=== PATIENT | male | born 1980 | race Two or more races ===

== ENCOUNTER 2024-03-14 01:25 | Emergency (ER) | payer SELFPAY ==
[2024-03-14 01:25] VITALS: BMI 35.2
--- NOTE | 2024-03-14 01:45 | PD.EDADULT ---
ED General RME/HPI General Chief complaint: General Adult/Misc Complain Stated complaint: HIGH BLOOD PRESSURE;N/V,CASANOVA Time Seen by Provider: 03/14/24 01:45 Arrival date/time: 03/14/24 01:25 RME / HPI RME / HPI narrative: This section includes all my notes and documentations, including HPI, PE, and ED course. Maurilio Rodarte MD HPI: 43yo male with a history of HTN, HLD, alcohol abuse accompanied by his presents to the ED for a chief complaint of elevated blood pressure. Patient states his blood pressure has been high since 1700 with the highest reading being 222/187. Patient reports associated headache, dizziness, nausea, and vomiting. He denies any chest pain, shortness of breath. Patient endorses drinking tonight and drinking daily for several months.. Has abdominal pain, difficult to localize. No other complaints reported. ROS: All negative except as documented in HPI. Physical Exam: General: Alert and oriented. No acute distress when remaining still. Eyes: Conjunctivae and lids clear. ENT: No nasal congestion. Neck: Supple. Heart: RRR. Lungs: No respiratory distress. Good air movement. No rhonchi, wheezing, rales. Abdomen: Soft and equivocal tenderness, difficult to localize. Legs: No clubbing, cyanosis, edema. Skin: Warm and dry. Neuro: Alert and oriented X 3. Cranial nerves II through XII grossly normal. No peripheral motor deficits. I reviewed all diagnostic test results. My interpretation of the EKG is sinus rhythm with no acute ST?T changes. My interpretation of the chest x-ray is no acute findings, official radiology report is pending. My review of the head CT report is no acute findings. My review of the abdominal CT report is diverticulitis and cirrhosis. Blood tests unremarkable. At this point, diagnoses include diverticulitis and hypertensive urgency. Treatment here included clonidine and metoprolol and Zofran and Flagyl and Levaquin. Significant improvement noted both objectively and subjectively. Recommended more outpatient care. Based on my best medical judgment, made decision no further evaluation or treatment indicated at this time. Patient understands and agrees to the discharge instructions customized and printed, see below. Discharge instructions from Dr. Rodarte: 1. After evaluation, you have diverticulitis, infection of your colon. 2. Take Cipro and Flagyl for the infection. 3. Zofran for nausea/vomiting. 4. Tylenol codeine for severe pain. 5. Clear liquid diet for 24 hours then advance diet slowly as tolerated. 6. To prevent dehydration, increase oral fluid and maintain clear urine. If dark or yellow, increase oral fluid. 7. To lower your BP, take metoprolol ER 100 mg in the morning and at night. You will live longer with lower BP and slower heart rate. 8. See a private doctor on 03/15/2024 for recheck. Ask to review all test results and official radiology reports, to make sure you receive all necessary follow-ups and monitoring, including cirrhosis (severe liver disease from alcohol) seen on your CT scan. Ask to help you stay healthy, helping you to quit alcohol, with good management of your BP, helping you to prevent future heart attacks and strokes, and with regular physical exam and health maintenance. Ask to help you get more care not available here in the ER. Such as EGD or scoping of your stomach, colonoscopy or scoping the colon, and a referral to see a assembler [employer]. 9. Read attached handouts. Seek immediate medical care with worsening, fever, or with any concerns. Maurilio Rodarte MD Related Data Previous Rx's ?Medication ?Instructions ?Recorded chlordiazepoxide HCl 25 mg capsule 25 mg PO Q6H PRN alcohol 08/16/22 withdrawal #20 caps chlorthalidone 25 mg tablet 25 mg PO QDAY #30 tabs 08/16/22 dapagliflozin propaned 5 1 tab PO QDAY #30 ea 08/16/22 mg-metformin ER 1,000 mg tablet, ext rel 24hr (Xigduo XR) ibuprofen 600 mg tablet 600 mg PO Q6H #30 tabs 04/22/23 acetaminophen 300 mg-codeine 30 mg 2 tab PO TID PRN pain #20 tabs 03/14/24 tablet ciprofloxacin HCl 500 mg tablet 500 mg PO BID #20 tabs 03/14/24 (Cipro) metoprolol succinate 100 mg 100 mg PO BID #60 ea 03/14/24 capsule sprinkle, ext. release 24 hr metronidazole 500 mg tablet 500 mg PO BID 10 days #20 tabs 03/14/24 ondansetron 4 mg disintegrating 4 mg PO TID PRN nausea and 03/14/24 tablet vomiting 5 days #10 tabs Allergies Allergy/AdvReac Type Severity Reaction Status Date / Time No Known Allergies Allergy Verified 03/14/24 01:28 Review of Systems Review of Systems Systems Reviewed: All systems reviewed, normal except as documented Past Medical History Past Medical History NEUROLOGIC: Negative Neurological Disorders CARDIAC: Positive Cardiac Disorders, Hypercholesterolemia and Hypertension; Negative Congestive Heart Failure RESPIRATORY: Negative Chronic Obstructive Pulmonary Disease (COPD) GASTROINTESTINAL: Negative Gastrointestinal Disorders GENITOURINARY: Negative Genitourinary Disorders or Renal Disease MUSCULOSKELETAL: Negative Musculoskeletal Disorders ENDOCRINE: Negative Endocrine Disorders, Diabetes Mellitus Type 1 or Diabetes Mellitus Type 2 HEMATOLOGIC: Negative Blood Disorders Social History SMOKING STATUS: Light (< 1 pack/day) ED Exam Narrative Physical exam: As noted in HPI. Course Course Course Narrative: CXR is ordered for determining the etiology of elevated blood pressure. Quality Measures none Orders Category Date Time Status EKG (ED ONLY) *Do not use* NOW Care 03/14/24 01:[address] abdomen pelvis wo con Stat Exams 03/14/24 01:[address] head/brain wo con Stat Exams 03/14/24 01:53 Taken EKG (ED Only) Stat Exams 03/14/24 01:53 Draft XR chest 1V portable Stat Exams 03/14/24 01:53 Taken Alcohol, Blood Medical Stat Lab 03/14/24 02:08 Completed Amylase Stat Lab 03/14/24 02:08 Completed CBC Stat Lab 03/14/24 02:08 Completed CMP [Comprehensive Metabolic Panel] Stat Lab 03/14/24 02:08 Completed Lipase Stat Lab 03/14/24 02:08 Completed Magnesium Stat Lab 03/14/24 02:08 Completed Troponin I Stat Lab 03/14/24 02:08 Completed Levofloxacin [Levaquin] Med 03/14/24 03:40 Discontinued 500 mg PO X1 ONE Metoprolol Tartrate [Lopressor] Med 03/14/24 01:52 Discontinued 100 mg PO X1 ONE Ondansetron Odt [Zofran Odt] Med 03/14/24 01:52 Discontinued 4 mg PO X1 ONE cloNIDine HCL [Catapres] Med 03/14/24 01:52 Discontinued 0.3 mg PO X1 ONE metroNIDAZOLE [Flagyl] Med 03/14/24 03:40 Discontinued 500 mg PO X1 ONE Vital Signs Vital signs: Vital Signs Temperature 98.2 F 03/14/24 01:51 Pulse Rate 99 03/14/24 01:51 Respiratory Rate 18 03/14/24 01:51 Blood Pressure 221/120 H 03/14/24 01:51 Pulse Oximetry (%) 98 03/14/24 01:51 Oxygen Delivery Method Room Air 03/14/24 01:51 [facility] Patient data External records reviewed:: [facility] previous records (Per chart review, patient was seen here on 04/22/23 for cirrhosis.) Clinical information provided by:: patient Social determinants that could affect healthcare access:: alcohol use Patient has the following chronic illnesses:: HTN, HLD, cirrhosis How is presenting disease/condition affected by chronic disease/condition?: exacerbated by Evaluation data The following diagnostics were reviewed and interpreted by me:: lab results, radiology exam(s) and EKG tracing(s) (My interpretation of the EKG is: Sinus rhythm (93 bpm) with nonspecific ST-T changes. Maurilio Rodarte MD) Lab and/or radiology exams considered but not ordered:: none Interpretation Summary: Hypertensive urgency and diverticulitis Medications Medications considered but not ordered:: none Medication administrations:: Medication Administration History Discontinued Medications Clonidine (Clonidine Hcl 0.1 Mg Tablet) 0.3 mg PO X1 ONE Stop: 03/14/24 01:53 Last Admin: 03/14/24 02:53 Dose: 0.3 mg Documented By: PHILIP Levofloxacin (Levofloxacin 250 Mg Tablet) 500 mg PO X1 ONE Stop: 03/14/24 03:41 Last Admin: 03/14/24 03:46 Dose: 500 mg Documented By: JONA Metoprolol Tartrate (Metoprolol Tartrate 25 Mg Tablet) 100 mg PO X1 ONE Stop: 03/14/24 01:53 Last Admin: 03/14/24 02:54 Dose: 100 mg Documented By: PHILIP Metronidazole (Metronidazole 250 Mg Tablet) 500 mg PO X1 ONE Stop: 03/14/24 03:41 Last Admin: 03/14/24 03:46 Dose: 500 mg Documented By: JONA Ondansetron HCl (Ondansetron Odt 4 Mg Tabrap) 4 mg PO X1 ONE; Protocol Stop: 03/14/24 01:53 Last Admin: 03/14/24 02:54 Dose: 4 mg Documented By: PHILIP See chart Consultations Consultation(s) initiated? (list below): No Diagnosis Differential Diagnosis ED Complaint MDM: hypertensive urgency vs emergency, CVA, brain tumor, GA, diverticulitis, ci Most likely diagnosis given after review of the tests above:: diverticulitis and hypertensive urgency Admission Indicated Admission indicated?: not indicated Explain why admission is indicated or not indicated:: Admission criteria not met. Admission Request Was there a request for admission?: No Disposition Plan Disposition Plan: Discharge Discharge Attestation Discharge Attestation: The patient and all family members were given an opportunity to ask questions and understood the discharge instructions. Discharge instructions specifically effects, indications for sooner follow up or return to the emergency department, and the expected course of current diagnosis. Patient condition: Stable Medical Decision Making Differential Diagnosis Differential Diagnosis: hypertensive urgency vs emergency, CVA, brain tumor, GA, diverticulitis, ci Lab Data 03/14/24 02:08 03/14/24 02:08 Labs: Lab Results 03/14/24 Range/Units 02:08 WBC 10.8 H (3.8-10.6) Thou/mm3 RBC 4.56 (4.50-5.90) Miln/mm3 Hgb 14.4 (13.5-16.0) g/dL Hct 41.0 (41.0-53.0) % MCV 90 (80-100) fL MCH 31.6 (25.0-35.0) pg MCHC 35.1 (31.0-37.0) g/dl RDW Std Deviation 40.3 (35.1-43.9) fL Plt Count 296 (140-440) Thou/mm3 Neut % (Auto) 81 H (37-80) % Lymph % (Auto) 15 (10-50) % [place] % (Auto) 3 (0-12) % Eos % (Auto) 0 (0-10) % Baso % (Auto) 1 (0-2.5) % Neut # (Auto) 8.7 H (1.8-7.7) Thou/mm3 Lymph # (Auto) 1.6 (1.0-4.8) Thou/mm3 [place] # (Auto) 0.4 (0.0-0.8) Thou/mm3 Eos # (Auto) 0.0 (0.0-0.5) Thou/mm3 Baso # (Auto) 0.1 (0.0-0.2) Thou/mm3 Immature Gran # (Auto) 0.03 H (0.00-0.00) Thou/mm3 Absolute Nucleated RBC 0.00 (0.00-0.00) Thou/mm3 Immature Gran % 0 (0-0) % Nucleated RBC % 0 (0) /100 WBC Sodium 129 L (136-145) mMol/L Potassium 3.8 (3.4-5.1) mMol/L Chloride 93 L (98-107) mMol/L Carbon Dioxide 24.9 (20.0-31.0) mMol/L Anion Gap 11 (7-16) BUN 8 L (9-23) mg/dL Creatinine 0.8 (0.6-1.3) mg/dL Estim Creat Clear Calc 148.6 (>60) mL/min eGFR > 60 (60 - ) See Note BUN/Creatinine Ratio 10 L (12-20) Ratio Glucose 168 H (74-106) mg/dL Calculated Osmolality 261 L (275-295) Calcium 10.2 (8.3-10.6) mg/dL Corrected Calcium 10.2 H (8.5-10.1) mg/dL Magnesium 1.7 (1.6-2.6) mg/dL Total Bilirubin 0.8 (0.3-1.2) mg/dL AST 100 H (0-34) U/L ALT 96 H (10-49) U/L Alkaline Phosphatase 174 H (46-116) U/L Troponin I < 0.002 (0.0-0.045) ng/mL Total Protein 8.7 H (5.7-8.2) gm/dL Albumin 5.0 (3.5-5.0) gm/dL Globulin 3.7 H (2.3-3.5) gm/dL Albumin/Globulin Ratio 1.4 (1.2-2.2) Amylase 127 H (30-118) U/L Lipase 45 (12-53) U/L Ethyl Alcohol < 3.0 (0-10.0) mg/dL Discharge Plan Plan Patient Disposition: HOME (Self Care) Prescriptions/Referrals Prescriptions/Med Rec: New metoprolol succinate 100 mg capsule,sprinkle,ER 24hr 100 mg PO BID Qty: 60 1RF metronidazole 500 mg tablet 500 mg PO BID 10 Days Qty: 20 0RF acetaminophen-codeine 300-30 mg tablet 2 tab PO TID MDD 6 PRN (Reason: pain) Qty: 20 0RF ciprofloxacin HCl [Cipro] 500 mg tablet 500 mg PO BID Qty: 20 0RF ondansetron 4 mg tablet,disintegrating 4 mg PO TID PRN (Reason: nausea and vomiting) 5 Days Qty: 10 0RF No Action chlordiazepoxide HCl 25 mg capsule 25 mg PO Q6H PRN (Reason: alcohol withdrawal) Qty: 20 0RF chlorthalidone 25 mg tablet 25 mg PO QDAY Qty: 30 0RF Xigduo XR 5-1,000 mg tablet, IR - ER, biphasic 24hr 1 tab PO QDAY Qty: 30 0RF ibuprofen 600 mg tablet 600 mg PO Q6H Qty: 30 0RF Referrals: Doug ([facility]),KAYLEE Sorensen [Primary Care Provider] - In 1 week Problem List Clinical Impression: Diverticulitis, Hypertension Patient/Caregiver Discharge Instructions Discharge Activity: activity as tolerated Education Materials: ED Cirrhosis, ED Diverticulitis, ED Hypertension, Established, ED Alcohol Abuse Additional Instructions: Discharge instructions from Dr. Rodarte: 1. After evaluation, you have diverticulitis, infection of your colon. 2. Take Cipro and Flagyl for the infection. 3. Zofran for nausea/vomiting. 4. Tylenol codeine for severe pain. 5. Clear liquid diet for 24 hours then advance diet slowly as tolerated. 6. To prevent dehydration, increase oral fluid and maintain clear urine.? If dark or yellow, increase oral fluid. 7. To lower your BP, take metoprolol ER 100 mg in the morning and at night. You will live longer with lower BP and slower heart rate. 8. See a private doctor on 03/15/2024 for recheck. Ask to review all test results and official radiology reports, to make sure you receive all necessary follow-ups and monitoring, including cirrhosis (severe liver disease from alcohol) seen on your CT scan. Ask to help you stay healthy, helping you to quit alcohol, with good management of your BP, helping you to prevent future heart attacks and strokes, and with regular physical exam and health maintenance. Ask to help you get more care not available here in the ER.? Such as EGD or scoping of your stomach, colonoscopy or scoping the colon, and a referral to see a assembler [employer]. 9. Read attached handouts.? Seek immediate medical care with worsening, fever, or with any concerns. Print Language: Uzbek Stand Alone Forms: [employer] Info., Patient Portal Info Letter
[2024-03-14 01:51] VITALS: BP 221/120; PULSE 99; RESP 18; TEMP 36.8; O2SAT 98
--- NOTE | 2024-03-14 01:53 | XR_ITS ---
Examination: PA chest single view Technique: Upright PA chest single view Exam date and time: March 14, 2024 0155 hrs. Indications: Shortness of breath high blood pressure today Findings: Normal heart size Lungs are clear. The osseous structures are intact Impression: No active disease
--- NOTE | 2024-03-14 01:53 | EKG_ITS ---
[facility] Test Date: 2024-03-14 Pat Name: SEJAL ZAMARRIPA Department: Room: - Gender: Male [place]: : 1980 Requested By: Maurilio Aguilar Order Number: [id number] Reading MD: Maurilio Aguilar Measurements Intervals [place] Rate: 92 P: 37 TX: 195 QRS: 30 QRSD: 101 T: 39 QT: 362 QTc: 449 Interpretive Statements SINUS RHYTHM Compared to ECG 08/16/2022 14:19:56 Intraventricular conduction delay no longer present /store/S0/[id number].pdf
--- NOTE | 2024-03-14 01:53 | XR_ITS ---
Examination: CT abdomen and pelvis without contrast. Coronal 3-D reconstructions. Sagittal 2-D reconstructions. Date and time of exam:March 14, 2024 0233 hrs. Comparison April 22, 2023 Indications: Abdominal pain nausea vomiting today CTDI: vol (mGy): 21.01 DLP: (mGycm): 1444 Technique: Axial images of the abdomen have been obtained, 3 mm slice thickness Intravenous contrast material has not been administered. Low dose protocols were performed. One or more of the following dose reduction techniques were used; automated exposure control, adjustment of the mA and/or KV according to patient size, use of iterative reconstruction technique. Findings: Liver irregular in contour and enlarged 28 cm Mild splenomegaly No focal liver lesions No gallstones No pancreatic or adrenal mass No renal or ureteral calculi, no hydronephrosis Aorta normal size Normal appendix No bowel obstruction Colonic diverticulosis Minimal sigmoid diverticulitis No peridiverticular abscess Urinary bladder intact Impression: Minimal sigmoid diverticulitis, no pelvic abscess
--- NOTE | 2024-03-14 01:53 | XR_ITS ---
Examination: CT brain head without contrast. 2-D sagittal coronal reconstructions Date and time of exam:March 14, 2024 0232 hrs. Indications: High blood pressure with headaches nausea vomiting today CTDI: vol (mGy):56 DLP: (mGycm):1173 Technique: Multiple CT axial sections of the brain have been obtained, 5 mm slice thickness. Contrast has not been administered. 2-D sagittal, coronal reconstructions have been obtained Low dose protocols were performed. One or more of the following dose reduction techniques were used; automated exposure control, adjustment of the mA and/or KV according to patient size, use of iterative reconstruction technique. Findings: No significant ventricular enlargement. Intra-axial or extra-axial hemorrhage density is not seen. No mass effect or midline shift Basal cisterns are not remarkable. Fourth ventricle is midline. Cranial vault intact. Impression: Negative for acute hemorrhage, mass effect or midline shift
[2024-03-14 02:17] LABS: Basophils # (Auto) 0.1 Thou/mm3 (0.0-0.2); Basophils % (Auto) 1 % (0-2.5); Eosinophils % (Auto) 0 % (0-10); Hemoglobin 14.4 g/dL (13.5-16.0); Immature Granulocytes % (Auto) 0 % (0-0); Immature Granulocytes Auto 0.03 Thou/mm3 (0.00-0.00); Lymphocytes # (Auto) 1.6 Thou/mm3 (1.0-4.8); Lymphocytes % (Auto) 15 % (10-50); Mean Corpuscular HGB Conc 35.1 g/dl (31.0-37.0); Mean Corpuscular Hemoglobin 31.6 pg (25.0-35.0); Mean Corpuscular Volume 90 fL (80-100); Monocytes # (Auto) 0.4 Thou/mm3 (0.0-0.8); Monocytes % (Auto) 3 % (0-12); Neutrophils # (Auto) 8.7 Thou/mm3 (1.8-7.7); Neutrophils % (Auto) 81 % (37-80); Nucleated Red Blood Cell % 0 /100 WBC (0); Platelet Count 296 Thou/mm3 (140-440); RDW Standard Deviation 40.3 fL (35.1-43.9); Red Blood Count 4.56 Miln/mm3 (4.50-5.90); White Blood Count 10.8 Thou/mm3 (3.8-10.6)
[2024-03-14 02:37] LABS: Alanine Aminotransferase 96 U/L (10-49); Albumin/Globulin Ratio 1.4 (1.2-2.2); Alkaline Phosphatase 174 U/L (46-116); Anion Gap 11 (7-16); Aspartate Amino Transferase 100 U/L (0-34); BUN/Creatinine Ratio 10 Ratio (12-20); Bilirubin,Total 0.8 mg/dL (0.3-1.2); Blood Urea Nitrogen 8 mg/dL (9-23); Calcium 10.2 mg/dL (8.3-10.6); Calcium (Corrected) 10.2 mg/dL (8.5-10.1); Carbon Dioxide 24.9 mMol/L (20.0-31.0); Chloride 93 mMol/L (98-107); Creatinine (Component) 0.8 mg/dL (0.6-1.3); Estimated Creatinine Clearance 148.6 mL/min (>60); Globulin 3.7 gm/dL (2.3-3.5); Glucose 168 mg/dL (74-106); Lipase 45 U/L (12-53); Magnesium 1.7 mg/dL (1.6-2.6); Osmolality,Calculated 261 (275-295); Potassium 3.8 mMol/L (3.4-5.1); Sodium 129 mMol/L (136-145); Total Protein 8.7 gm/dL (5.7-8.2); eGFR > 60 See Note
[2024-03-14 02:50] LABS: Alcohol, Blood Medical < 3.0 mg/dL (0-10.0); Amylase 127 U/L (30-118); Troponin I < 0.002 ng/mL (0.0-0.045)
[2024-03-14 02:53] VITALS: BP 221/120; PULSE 99
[2024-03-14] MEDS: cloNIDine HCL 0.1 MG TABLET 0.3 MG PO (02:53)
[2024-03-14 02:54] VITALS: BP 221/120; PULSE 99
[2024-03-14] MEDS: ONDANSETRON ODT 4 MG TABRAP PO (02:54)
[2024-03-14] MEDS: METOPROLOL TARTRATE 25 MG TABLET 100 MG PO (02:54)
--- NOTE | 2024-03-14 03:13 | PRELIM_ITS ---
CT scan of the head without intravenous contrast (axial sections with sagittal and coronal reformats) . March 14, 2024 0232 hoursClinical History: Headache and high BPComparison: 11/01/2020.Findings:No evidence of intracranial hemorrhage, mass effect or midline shift. The ventricles and CSF spaces are unremarkable. The calvarium is unremarkable. The mastoid air cells are clear. Mucous inclusion cys ts are noted in the right maxillary sinus.Impression:No evidence of intracranial hemorrhage, mass eff ect or midline shift. Report Electronically Signed By: Mark Cruz 03/14/2024 3:11:58 AM [EST]
--- NOTE | 2024-03-14 03:14 | PRELIM_ITS ---
CT scan of the abdomen and pelvis without intravenous contrast (axial sections with sagittal and ananth nal reformats). March 14, 2024 at 0233 hoursClinical History: Abdominal pain and vomiting.Comparis on: Compared with the prior CT study dated April 22, 2023.Findings:The lung bases are clear.The gal lbladder, pancreas, spleen, kidneys and adrenals are unremarkable on this noncontrast study.Irregula r liver margins.No evidence of bowel obstruction. The appendix is within normal limits.There is no me senteric or retroperitoneal adenopathy.The urinary bladder is nondistended, limited evaluation. There is no free fluid or free air.The osseous structures are unremarkable.Diverticulosis of the colon.Foc al thickening of the sigmoid colon associated with mild peripheral fat stranding, no perforation, no collections. Impression:Diverticulitis of the sigmoid colon.Cirrhosis. Report Electronically Signed B y: Mark Cruz 03/14/2024 3:13:35 AM [EST]
[2024-03-14] MEDS: metroNIDAZOLE 250 MG TABLET 500 MG PO (03:46)
[2024-03-14] MEDS: LEVOFLOXACIN 250 MG TABLET 500 MG PO (03:46)
[2024-03-14 03:49] VITALS: BP 181/107; PULSE 94
== END 2024-03-14 04:01 | disposition home or self-care (01) ==
PROVIDERS: Emergency Provider Emergency Medicine; PCP Physician Assistant
DX: K57.32 Diverticulitis of large intestine without perforation or abscess without bleeding (principal); I10 Essential (primary) hypertension
CPT/HCPCS: 36415; 70450; 71045; 74176; 80053; 80320; 82150; 83690; 83735; 84484; 85025; 93005; 99284; Q0162; A9270; G0480

== ENCOUNTER 2025-01-21 20:59 | Emergency (ER) | payer BC, SELFPAY ==
[2025-01-21 21:02] VITALS: BMI 32.6
--- NOTE | 2025-01-21 22:18 | PD.EDADDENDU ---
Emergency Room Addendum Addendum Narrative: When I looked for the patient to start my evaluation, I was told the patient eloped. Maurilio Rodarte MD
== END 2025-01-22 00:21 | disposition left against medical advice (07) ==
LOC: SERX 01-22 00:27
PROVIDERS: Emergency Provider Emergency Medicine
DX: Z53.21 Procedure and treatment not carried out due to patient leaving prior to being seen by health care provider (principal)
CPT/HCPCS: 99281

== ENCOUNTER 2025-01-22 03:54 | Emergency (ER) | payer BC, SELFPAY ==
[2025-01-22 03:55] VITALS: BMI 33.2
[2025-01-22 04:09] VITALS: BP 158/90; PULSE 118; RESP 17; TEMP 37.5; O2SAT 98
--- NOTE | 2025-01-22 04:44 | XR_ITS ---
Examination: CT brain head without contrast. 2-D sagittal coronal reconstructions Date and time of exam: January 22, 2025, 0524 hours INDICATIONS: Patient fell today with injury to the head, head pain. CTDI: vol (mGy): 50.50 DLP: (mGycm): 1018 Technique: Multiple CT axial sections of the brain have been obtained, 5 mm slice thickness. Contrast has not been administered. 2-D sagittal, coronal reconstructions have been obtained Low dose protocols were performed. One or more of the following dose reduction techniques were used; automated exposure control, adjustment of the mA and/or KV according to patient size, use of iterative reconstruction technique. Findings: No significant ventricular enlargement. Intra-axial or extra-axial hemorrhage density is not seen. No mass effect or midline shift Basal cisterns are not remarkable. Fourth ventricle is midline. Cranial vault intact. Impression: Negative for acute hemorrhage, mass effect or midline shift
--- NOTE | 2025-01-22 04:44 | XR_ITS ---
Examination: CT maxillofacial, without intravenous contrast. 2-D sagittal reconstructions. 3-D reconstructions. Date and time of exam: January 22, 2025, 0527 hours INDICATIONS: Patient fell today with injury to the face, facial pain CTDI: vol (mGy): 38.90 DLP: (mGycm): 860 Technique: Multiple axial images of maxillofacial region, 3.0 mm slice thickness. 2-D sagittal and coronal reconstructions. 3-D reconstructions. Low dose protocols were performed. One or more of the following dose reduction techniques were used; automated exposure control, adjustment of the mA and/or KV according to patient size, use of iterative reconstruction technique. Findings: Mandible and maxilla appear intact Retention cyst in the right maxillary antrum No depression zygomatic arches. Frontal bone orbital rims intact No nasal bone fracture IMPRESSION: No acute facial fracture.
--- NOTE | 2025-01-22 04:44 | XR_ITS ---
Examination: CT cervical spine without contrast 2-D sagittal reconstructions 2-D coronal reconstructions 3-D reconstructions. Date and time:, January 22 2025, 0525 hours INDICATIONS: Patient fell today with injury to the neck, neck pain CTDI:vol (mGy) 16.56 DLP: (mGycm) 968 Technique: Multiple 2 mm axial sections of the cervical spine have been obtained. The coronal and sagittal reconstructions have been obtained. 3-D reconstructions have been obtained. Low dose protocols were performed. One or more of the following dose reduction techniques were used; automated exposure control, adjustment of the mA and/or KV according to patient size, use of iterative reconstruction technique. Findings: Axial sections demonstrate intact base of the skull. C1 exhibit satisfactory relationship to the odontoid. No acute cervical vertebral body fracture seen. Alignment posterior spinous processes satisfactory. Impression: No acute cervical fracture.
--- NOTE | 2025-01-22 04:44 | XR_ITS ---
EXAMINATION: AP chest with bilateral ribs 4 views TECHNIQUE: AP upright chest, RPO and LPO bilateral AP lower ribs total 4 views Date and time: January 22, 2025, 0504 hours INDICATIONS: Patient fell from a ladder with injury to the bilateral chest with rib pain FINDINGS: Normal heart size No pneumothorax Nondisplaced fracture left 10th rib anterolaterally IMPRESSION: No pneumothorax pulmonary contusion or hemothorax Nondisplaced fracture left 10th rib anterolaterally
--- NOTE | 2025-01-22 04:47 | EDRME_ITS ---
Rapid Medical Screening Exam [facility] Arrival date/time: 01/22/25 03:54 This is a case of 44-year-old male with no medical history came in in the emergency room due to fall injury history of present illness last night when the patient fell approximately 4 feet ladder patient hit his head and sustained contusion on the left occipital area patient is also complaining of neck pain patient thinks that he has a jaw fracture because he has heavy pain and clicking sound on the left jaw patient also complaining of bilateral rib pain no other symptoms noted denies LOC denies chest pain denies shortness of breath denies any chest or abdominal injury Chief Complaint: Fall Vital signs: Vital Signs Temperature 99.5 F 01/22/25 04:09 Pulse Rate 118 H 01/22/25 04:09 Respiratory Rate 17 01/22/25 04:09 Blood Pressure 158/90 H 01/22/25 04:09 Pulse Oximetry (%) 98 01/22/25 04:09 Oxygen Delivery Method Room Air 01/22/25 04:09 Exam: Patient sustained contusion on the scalp occipital area no crepitation no deformity awake alert oriented x 4 no focal deficit GCS 15/15 steady gait mild tenderness on the cervical and bilateral rib Clinical Impression: Fall head injury jaw contusion neck pain rib pain
--- NOTE | 2025-01-22 05:43 | PRELIM_ITS ---
CT scan of the head without intravenous contrast (axial sections with sagittal and coronal reformats) January 22, 2025 0524 hours Clinical History: head injury Findings: No evidence of intracranial hemorrhage, mass effect or midline shift. The ventricles and CSF spaces are unremarkable. The calvarium is intact. The mastoid air cells and the visualized paranasal sinuses are clear. Impression: No evidence of intracranial hemorrhage, midline shift or calvarial fracture. Report Electronically Signed By: Jack Bell 01/22/2025 5:43:25 AM [EST]
--- NOTE | 2025-01-22 05:44 | PRELIM_ITS ---
CT maxillofacial without intravenous contrast (axial sections with sagittal and coronal reformats). January 22, 2025 0527 hours Clinical History: injruy Findings: There is no fracture. The maxillary sinus and orbital corcoran are intact. No fluid levels are seen. No evidence of intraorbital hematoma, proptosis, globe injury or radiodense foreign body. The zygomatic arches and mandible are intact. The visualized soft tissues are unremarkable. Impression: No maxillofacial fracture. Report Electronically Signed By: Jack Bell 01/22/2025 5:43:39 AM [EST]
--- NOTE | 2025-01-22 05:44 | PRELIM_ITS ---
CT scan of the cervical spine without intravenous contrast (axial sections with sagittal and coronal reformats) January 22, 2025 0525 hours Clinical History: fall Findings: There is no fracture or subluxation. There is straightening of the cervical lordosis, which may be due to muscle spasm or positioning. Mild degenerative changes are identified in the spine. The prevertebral soft tissues are unremarkable. Impression: No evidence of fracture or subluxation. Degenerative changes as described. Report Electronically Signed By: Jack Bell 01/22/2025 5:43:31 AM [EST]
--- NOTE | 2025-01-22 07:36 | EDNOTE_ITS ---
<Statement entered by Tania Arreola MD - 01/22/25 14:32> As co-signing physician, I was present and available for consult prn. I concur with the plan and care as documented by the midlevel provider. ED Fall Injury RME/HPI General Chief Complaint: Fall Stated Complaint: FALL L SIDE/RIB PAIN Time Seen by Provider: 01/22/25 06:14 Source: patient Arrival date/time: 01/22/25 03:54 44-year-old male with no known medical history presents to the emergency room [facility] a chief complaint of jaw pain, neck pain, and a headache after falling from a 4 foot ladder yesterday night Mode of arrival: ambulatory Limitations: no limitations RME / HPI RME / HPI Narrative: 01/22/25 03:54 This is a case of 44-year-old male with no medical history came in in the emergency room due to fall injury history of present illness last night when the patient fell approximately 4 feet ladder patient hit his head and sustained contusion on the left occipital area patient is also complaining of neck pain patient thinks that he has a jaw fracture because he has heavy pain and clicking sound on the left jaw patient also complaining of bilateral rib pain no other symptoms noted denies LOC denies chest pain denies shortness of breath denies any chest or abdominal injury Exam: Patient sustained contusion on the scalp occipital area no crepitation no deformity awake alert oriented x 4 no focal deficit GCS 15/15 steady gait mild tenderness on the cervical and bilateral rib Impression: Fall head injury jaw contusion neck pain rib pain Related Data Previous Rx's ?Medication ?Instructions ?Recorded chlordiazepoxide HCl 25 mg capsule 25 mg PO Q6H PRN al cohol 08/16/22 withdrawal #20 caps chlorthalidone 25 mg tablet 25 mg PO QDAY #30 tabs dapagliflozin propaned 5 1 tab PO QDAY #30 ea 3 mg-metformin ER 1,000 mg tablet, ext rel 24hr (Xigduo XR) ibuprofen 600 mg tablet 600 mg PO Q6H #30 tabs 04/22 acetaminophen 300 mg-codeine 30 mg 2 tab PO TID PRN pa in #20 tabs 03/14/24 tablet ciprofloxacin HCl 500 mg tablet 500 mg PO BID #20 tabs 03/14/24 (Cipro) metoprolol succinate 100 mg 100 mg PO BID #60 ea 03/14 capsule sprinkle, ext. release 24 hr Allergies Allergy/AdvReac Type Severity Reaction Status Date / Time No Known Allergies Allergy Verified 01/21/25 21:06 Review of Systems Review of Systems Systems Reviewed: All systems reviewed, normal except as documented Constitutional Constitutional: Reports system reviewed and no additional complaints, except as documented, Denies fatigue, Denies fever(s), Reports headache(s) and Reports weakness Eyes Eyes: Reports system reviewed and no additional complaints, except as documented, Denies blurry vision and Denies change in vision ENT Ears, Nose, Mouth, and Throat: Reports system reviewed and no additional complaints, except as documented, Denies otalgia, Reports headache(s), Denies nasal congestion, Reports neck pain, Denies throat swelling and Denies vertigo Cardiovascular Cardiovascular: Reports system reviewed and no additional complaints, except as documented, Denies chest pain, Denies dyspnea and Denies dyspnea on exertion Respiratory Respiratory: Reports system reviewed and no additional complaints, except as documented, Denies chest congestion, Denies cough, Denies dyspnea, Denies dyspnea on exertion and Denies wheezing Gastrointestinal Gastrointestinal: Reports system reviewed and no additional complaints, except as documented, Denies abdominal pain, Denies cramping, Denies nausea and Denies vomiting Genitourinary Genitourinary: Reports system reviewed and no additional complaints, except as documented, Denies dysuria and Denies hematuria Musculoskeletal Musculoskeletal: Reports system reviewed and no additional complaints, except as documented, Denies back pain and Reports neck pain Integumentary/Breasts Skin/Breast: Reports system reviewed and no additional complaints, except as documented and Denies wounds Neurologic Neurologic: Reports system reviewed and no additional complaints, except as documented, Denies confusion, Reports headache(s), Denies lack of coordination, Denies vertigo and Reports weakness Psychiatric Psychiatric: Reports system reviewed and no additional complaints, except as documented, Denies anxiety, Denies confusion, Denies depression, Denies paran oia, Denies suicidal ideation and Denies tactile hallucinations Endocrine Endocrine: Reports system reviewed and no additional complaints, except as do cumented and Denies fatigue Hematologic/Lymphatic Hematologic/Lymphatic: Reports system reviewed and no additional complaints, except as documented and Denies lymphadenopathy Allergic/Immunologic Allergic/Immunologic: Reports system reviewed and no additional complaints, except as documented, Denies throat swelling, Denies urticaria and Denies wheezing ED Exam General Limitations: Present no limitations General appearance: Present alert and in no apparent distress Head Head exam: Present atraumatic, normocephalic and normal inspection Expanded Head Exam Head exam physical: Present contusion; Absent laceration, abrasion, hematoma, raccoon eyes, Grant's sign, tenderness of temporal artery, CSF rhinorrhea or CSF otorrhea Eye Eye exam: Present normal appearance, PERRL and EOMI ENT ENT exam: Present normal exam, normal oropharynx and mucous membranes moist Neck Neck exam: Present normal inspection, full ROM and trachea midline Chest Chest inspection: Present normal inspection and symmetric chest wall rise Respiratory Respiratory exam: Present normal lung sounds bilaterally Cardiovascular Cardiovascular exam: Present regular rate, normal rhythm and normal heart sounds Abdominal Exam Abdominal exam: Present soft and normal bowel sounds Extremities Exam Extremities exam: Present normal inspection and full ROM Back Exam Back exam: Present normal inspection and full ROM Neurological Exam Neurological exam: Present alert, oriented X3, CN II-XII intact, normal gait and reflexes normal Expanded Neurological Exam Patient oriented to: Present person, place and time Speech: Present fluid speech Cerebellar function: Present normal gait Motor strength - LUE: 5/5 Motor strength - RUE: 5/5 Motor strength - LLE: 5/5 Motor strength - RLE: 5/5 Psychiatric Psychiatric exam: Present normal affect and normal mood Skin Skin exam: Present warm, dry, intact and normal color Course Quality Measures none Orders Category Date Time Status CT cervical spine wo con Stat Exams 01/22/25 04:[address] facial bones wo con Stat Exams 01/22/25 04:[address] head/brain wo con Stat Exams 01/22/25 04:44 Taken XR ribs BI 3V Stat Exams 01/22/25 04:44 Taken Vital Signs Vital signs: Vital Signs Temperature 99.5 F 01/22/25 04:09 Pulse Rate 118 H 01/22/25 04:09 Respiratory Rate 17 01/22/25 04:09 Blood Pressure 158/90 H 01/22/25 04:09 Pulse Oximetry (%) 98 01/22/25 04:09 Oxygen Delivery Method Room Air 01/22/25 04:09 Fall MDM Narrative MDM Narrative:: 44-year-old male with no known medical history presents to the emergency room with a chief complaint of jaw pain, neck pain, and a headache after falling from a 4 foot ladder yesterday night Patient data External records reviewed:: [facility] previous records Clinical information provided by:: patient Social determinants that could affect healthcare access:: none Patient has the following chronic illnesses:: No chronic illness How is presenting disease/condition affected by chronic disease/condition?: no chronic disease Evaluation data The following diagnostics were reviewed and interpreted by me:: lab results and radiology exam(s) Lab and/or radiology exams considered but not ordered:: Labs and radiology exams considered and ordered Interpretation Summary: CT head and brain-Findings: No evidence of intracranial hemorrhage, mass effect or midline shift. The ventricles and CSF spaces are unremarkable. The calvarium is intact. The mastoid air cells and the visualized paranasal sinuses are clear. Impression: No evidence of intracranial hemorrhage, midline shift or calvarial fracture. CT cervical spine-Findings: There is no fracture or subluxation. There is straightening of the cervical dennise dosis, which may be due to muscle spasm or positioning. Mild degenerative changes are identified in the spine. The prevertebral soft tissues are unremarkable. Impression: No evidence of fracture or subluxation. Degenerative changes as described. CT facial bonesFindings: There is no fracture. The maxillary sinus and orbital corcoran are intact. No fluid levels are seen. No evidence of intraorbital hematoma, proptosis, globe injury or radiodense foreign body. The zygomatic arches and mandible are intact. The visualized soft tissues are unremarkable. Impression: No maxillofacial fracture. Medications / Prescriptions Medications or Prescriptions considered but not ordered:: No medication given Medication administrations:: Medication given Consultations Consultation(s) initiated? (list below): No Diagnosis Fall Differential Diagnosis: concussion with loss of consciousness, concussion without loss of consciousness and other (Close head injury/facial contusion) Most likely diagnosis given after review of the tests above:: Closed injury/facial contusion Admission Indicated Admission indicated?: not indicated Admission Request Was there a request for admission?: No Disposition Plan Disposition Plan: Discharge Discharge Attestation Discharge Attestation: The patient and all family members were given an opportunity to ask questions and understood the discharge instructions. Discharge instructions specifically effects, indications for sooner follow up or return to the emergency department, and the expected course of current diagnosis. Patient condition: Stable Discharge Plan Plan Patient Disposition: HOME (Self Care) Discharge Disposition comment: Stable Prescriptions/Referrals Prescriptions/Med Rec: No Action chlordiazepoxide HCl 25 mg capsule 25 mg PO Q6H PRN (Reason: alcohol withdrawal) Qty: 20 0RF chlorthalidone 25 mg tablet 25 mg PO QDAY Qty: 30 0RF Xigduo XR 5-1,000 mg tablet, IR - ER, biphasic 24hr 1 tab PO QDAY Qty: 30 0RF ibuprofen 600 mg tablet 600 mg PO Q6H Qty: 30 0RF metoprolol succinate 100 mg capsule,sprinkle,ER 24hr 100 mg PO BID Qty: 60 1RF acetaminophen-codeine 300-30 mg tablet 2 tab PO TID MDD 6 PRN (Reason: pain) Qty: 20 0RF ciprofloxacin HCl [Cipro] 500 mg tablet 500 mg PO BID Qty: 20 0RF Referrals: Gene Fisher MD [Primary Care Provider, Family Practice] - In 1 week Problem List Clinical Impression: Contusion of face, Closed head injury Patient/Caregiver Discharge Instructions Education Materials: ED Facial Contusion, ED Head Injury (Adult) Additional Instructions: Please follow-up with your primary care provider in the next [address] of your face, head and brain, and neck were negative for any acute findings or fractures. For any evidence of worsening signs or symptoms return to the emergency room immediately Print Language: Tamazight Stand Alone Forms: Suzi Award Info., Work/School Release, Patient Portal Info Letter PA/SPENSER Supervising Physician PA/RIGGING MAN Supervising Physician: Dr. ARREOLA
[2025-01-22 07:52] VITALS: BP 146/91; PULSE 112; RESP 19; TEMP 36.7; O2SAT 98
== END 2025-01-22 09:09 | disposition home or self-care (01) ==
PROVIDERS: Emergency Provider Nurse Practitioner Family; PCP Family Medicine
DX: S00.03XA Contusion of scalp, initial encounter (principal); S10.93XA Contusion of unspecified part of neck, initial encounter; S29.9XXA Unspecified injury of thorax, initial encounter; W11.XXXA Fall on and from ladder, initial encounter
CPT/HCPCS: 70450; 70486; 71110; 72125; 99282